=== PATIENT | female | born 1980 ===

== ENCOUNTER → 2019-10-01 | Outpatient (CLI) | payer OTHER | END | disposition home or self-care (01) | LOC: PRENATAL 08:00 | PROVIDERS: ATTEND Obstetrics & Gynecology Maternal & Fetal Medicine | DX: O99.211 Obesity complicating pregnancy, first trimester (principal); O36.80X1 Pregnancy with inconclusive fetal viability, fetus 1; O09.522 Supervision of elderly multigravida, second trimester; O34.211 Maternal care for low transverse scar from previous cesarean delivery; Z36.89 Encounter for other specified antenatal screening ==

== ENCOUNTER → 2019-11-27 | Outpatient (CLI) | payer OTHER | END | disposition home or self-care (01) | LOC: PRENATAL 08:00 | PROVIDERS: ATTEND Obstetrics & Gynecology Maternal & Fetal Medicine | DX: O10.012 Pre-existing essential hypertension complicating pregnancy, second trimester (principal); O35.0XX1 Maternal care for (suspected) central nervous system malformation in fetus, fetus 1; O35.3XX1 Maternal care for (suspected) damage to fetus from viral disease in mother, fetus 1; O98.512 Other viral diseases complicating pregnancy, second trimester; O09.522 Supervision of elderly multigravida, second trimester; O99.282 Endocrine, nutritional and metabolic diseases complicating pregnancy, second trimester; O34.12 Maternal care for benign tumor of corpus uteri, second trimester; O99.212 Obesity complicating pregnancy, second trimester; Z36.89 Encounter for other specified antenatal screening; Z3A.20 20 weeks gestation of pregnancy ==

== ENCOUNTER → 2019-12-25 | Outpatient (CLI) | payer OTHER | END | disposition home or self-care (01) | LOC: PRENATAL 08:00 | PROVIDERS: ATTEND Obstetrics & Gynecology Maternal & Fetal Medicine | DX: O26.842 Uterine size-date discrepancy, second trimester (principal); O09.522 Supervision of elderly multigravida, second trimester; O10.012 Pre-existing essential hypertension complicating pregnancy, second trimester; O99.282 Endocrine, nutritional and metabolic diseases complicating pregnancy, second trimester; O34.12 Maternal care for benign tumor of corpus uteri, second trimester; O99.212 Obesity complicating pregnancy, second trimester; O34.219 Maternal care for unspecified type scar from previous cesarean delivery; Z36.89 Encounter for other specified antenatal screening; Z3A.23 23 weeks gestation of pregnancy ==

== ENCOUNTER → 2020-03-04 | Outpatient (CLI) | payer OTHER | END | disposition home or self-care (01) | LOC: PRENATAL 01-22 08:00 | PROVIDERS: ATTEND Obstetrics & Gynecology Maternal & Fetal Medicine | DX: O26.843 Uterine size-date discrepancy, third trimester (principal); O10.013 Pre-existing essential hypertension complicating pregnancy, third trimester; O99.891 Other specified diseases and conditions complicating pregnancy; O36.63X1 Maternal care for excessive fetal growth, third trimester, fetus 1; O26.613 Liver and biliary tract disorders in pregnancy, third trimester; Z36.89 Encounter for other specified antenatal screening; Z3A.34 34 weeks gestation of pregnancy ==

== ENCOUNTER → 2020-03-11 | Outpatient (CLI) | payer OTHER | END | disposition home or self-care (01) | LOC: PRENATAL 10:00 | PROVIDERS: ATTEND Obstetrics & Gynecology Maternal & Fetal Medicine | DX: O36.5931 Maternal care for other known or suspected poor fetal growth, third trimester, fetus 1 (principal); O10.013 Pre-existing essential hypertension complicating pregnancy, third trimester; O99.891 Other specified diseases and conditions complicating pregnancy; O99.213 Obesity complicating pregnancy, third trimester; O26.613 Liver and biliary tract disorders in pregnancy, third trimester; Z36.89 Encounter for other specified antenatal screening; Z3A.35 35 weeks gestation of pregnancy ==